=== PATIENT | female | born 1950 | race Caucasian/White ===

== ENCOUNTER 2017-10-09 13:32 | Emergency (ER) | payer MEDICARE, MEDICAID ==
[2017-10-09] MEDS ORDERED: SOD CHLORIDE 0.9% 1,000 ML IV (13:37)
[2017-10-09] MEDS ORDERED: KETOROLAC 15 MG INJ IV (13:45)
== END 2017-10-09 18:15 | disposition home or self-care (01) ==
LOC: E/R 13:32
DX: G44.209 Tension-type headache, unspecified, not intractable (principal); F31.9 Bipolar disorder, unspecified; I10 Essential (primary) hypertension
CPT/HCPCS: 93005; 99283-25